=== PATIENT | female | born 1955 | race Caucasian/White ===

== ENCOUNTER 2016-06-15 07:31 | Day surgery (SDC) | payer BC ==
--- NOTE | ~2016-06-15 | OP ---
Record Of Operation [facility] [address] [place]. [address] NAME: LIANNA WITT : 55 STATUS : [place] [facility] [place] [id number] AGE: 61 ADM/REG DATE : 06/15/16 MR#: [id number] REPORT SERV DATE: 06/15/16 DICTATED BY: NICOLA AG DATE: 06/15/16 REPORT STATUS : Draft TRANSCRIBED BY: MODL DATE: 06/15/16 DATE OF PROCEDURE: 06/15/2016 PREPROCEDURE DIAGNOSIS: Chronic respiratory failure and tracheostomy with difficulty to perform trach capping. POSTPROCEDURE DIAGNOSIS: Chronic respiratory failure and tracheostomy with difficulty to perform trach capping along with some bronchomalacia. DESCRIPTION OF PROCEDURE: The patient had informed consent with verbal and written. Procedure was explained and all questions were answered. The case also was discussed with Dr. Witt, her regular physician at [facility]. The patient was sedated by Anesthesia through her trach. We tried to go through the right nares after some viscous lidocaine was inserted to the right nares after the patient was sedated with a fiberoptic adult bronchoscope. We were able to go through, and initially we were able to see above the cords, and the vocal cords appeared symmetric, and there were no obvious lesions or masses above the cord, but then I got a lot of soft tissue airway collapse, and was never able to actually cannulate through the vocal cords. We tried both a therapeutic scope and small adult scope, and we even tried maneuver such as dropping the balloon over trach while she is on the ventilator, but without success. We then pulled the scope out and got an emergently a pediatric scope to insert through the size 6 Shiley trach and we were able to see what look like granulation tissue versus secretion at the tip of the trach, but the pediatric scope was too weak to suction that. So, we got a small adult scope which was successful in going through the trach and we were able to inject some saline to loosen up that material and suctioned back all the thick secretion that was at the tip of the trach. After we cleared out those thick secretions, we did not identify any significant narrowings throughout the trachea. There are some mucosal inflammatory irritation just below the trach at that level of the trachea. I did surveyed the brittney as well as the left and right bronchial trees. All the segments do collapse under dynamic collapse suggesting maybe some bronchomalacia. I was able to see all segments and they did open up when the patient was able to relax under inspiratory ventilation. There were no significant masses are identified in either bronchial tree. No significant bleeding. The patient tolerated procedure well. No specimens were obtained. CEP/MODL Nicola Ag DO / [id number] CC: DO Van Golden M.D.
[~2016-06-15 07:31] MED LIST: ACET500CAP PO; ACETSUP325 PR; ADVIL PO; APRES25 PO; ASAB PO; ASABAYER PO; AT25 PO; B1100 PO; BROVANA15 MCG INH; CALAN120 MG PO; DIOVAN PEG; DUONEB INH; ELDERTONIC PO; FOLIC PO; GLUCPH PO; L40 PO; LIPITOR40 PO; LOTRIMIN AF T; MACROBID PO; NORCO1 TA1 PO; PROTONI1 PO; PULRESP.5 INH; SPIRO25 PO; XANAX1 MG PO; [UNRECOGNIZED DRUG - OTHER] INH
[2016-06-15 10:22] LABS: BUN (BLOOD UREA NITROGEN) 29 MG/DL (6-23); CHLORIDE, SERUM 99 MMOL/L (96-112); CO2 (CARBON DIOXIDE) 33 MMOL/L (24-34); CREATININE 1.11 MG/DL (0.55-1.02); GFR AFRICAN AMERICAN 62 ML/MIN (>=60); GFR NON AFRICAN AMERICAN 54 ML/MIN (>=60); SODIUM, SERUM 136 MMOL/L (135-148)
[2016-06-15 10:23] LABS: CALCIUM, SERUM 10.5 MG/DL (8.5-10.4); GLUCOSE, SERUM 103 MG/DL (60-99)
[2016-08-14] MEDS ORDERED: TUMERIC CURCUMIN PO (03:41)
[2016-08-14] MEDS ORDERED: ASAB PO (03:42)
[2016-08-14] MEDS ORDERED: CALAN120 MG PO (03:42)
[2016-08-14] MEDS ORDERED: NORCO1 TA1 PO (03:42)
[2016-08-14] MEDS ORDERED: LIPITOR40 PO (03:43)
[2016-08-14] MEDS ORDERED: L40 PO (03:44)
[2016-08-14] MEDS ORDERED: XANAX1 MG PO (03:44)
[2016-08-14] MEDS ORDERED: B-COMPLEX/1 PO (03:48)
[2016-08-14] MEDS ORDERED: PULRESP.5 INH (03:54)
[2016-08-28] MEDS ORDERED: PRIN10 PO (16:13)
[2016-08-28] MEDS ORDERED: CARD60 PO (16:13)
[2016-08-28] MEDS ORDERED: SPIRIVA INH (16:14)
[2016-08-28] MEDS ORDERED: P10 PO (16:14)
[2016-08-28] MEDS ORDERED: ALBUTEROL INH (16:18)
[2016-08-28] MEDS ORDERED: NORCO1 TA1 PO (16:18)
[2016-08-28] MEDS ORDERED: KDUR20 PO (16:19)
[2016-08-28] MEDS ORDERED: PROAIR HFA INH (16:19)
== END 2016-06-15 17:32 | disposition home or self-care (01) ==
LOC: DMU 07:31
PROVIDERS: Internal Medicine Pulmonary Disease
PROC: 0BJ08ZZ Inspection of Tracheobronchial Tree, Via Natural or Artificial Opening Endoscopic (ICD-10-PCS; principal; 2016-06-15 11:00)
DX: J96.10 Chronic respiratory failure, unspecified whether with hypoxia or hypercapnia (principal); J95.03 Malfunction of tracheostomy stoma; J98.09 Other diseases of bronchus, not elsewhere classified; Z87.891 Personal history of nicotine dependence; E11.9 Type 2 diabetes mellitus without complications; E66.9 Obesity, unspecified; I10 Essential (primary) hypertension; I25.10 Atherosclerotic heart disease of native coronary artery without angina pectoris; Z79.899 Other long term (current) drug therapy; Z79.82 Long term (current) use of aspirin; Z79.891 Long term (current) use of opiate analgesic; Z79.84 Long term (current) use of oral hypoglycemic drugs
CPT/HCPCS: 80048; 82962; 94640; A9270-GY; J2250; J2405